=== PATIENT | female | born 1945 ===

== ENCOUNTER 2018-06-07 20:58 | Emergency (ER) | payer OTHER ==
[~2018-06-07] VITALS: Ht 157.5 cm; Wt 45.4 kg
[2018-06-07] MEDS ORDERED: ASPIRIN EC81 MG (21:39)
[2018-06-07] MEDS ORDERED: CARVEDILOL6.25 MG ×2 (21:40→21:45)
[2018-06-07] MEDS ORDERED: LIPITOR20 MG (21:40)
[2018-06-07] MEDS ORDERED: FUROSEMIDE20 MG ×2 (21:40→21:45)
[2018-06-07] MEDS ORDERED: SINGULAIR10 MG (21:41)
[2018-06-07] MEDS ORDERED: ENALAPRIL MALEA20 MG (21:41)
[2018-06-07] MEDS ORDERED: TIZANIDINE HCL2 M1 (21:41)
[2018-06-07] MEDS ORDERED: PLAVIX75 MG (21:41)
[2018-06-07] MEDS ORDERED: SYNTHROID50 MCG (21:42)
== END 2018-06-07 22:53 | disposition home or self-care (01) ==
LOC: ER 20:58
DX: S90.42 Blister (nonthermal) of toe (principal); L08.89 Other specified local infections of the skin and subcutaneous tissue; X58.XXXS Exposure to other specified factors, sequela